=== PATIENT | male | born 1955 | race African-American/Black ===

== ENCOUNTER 2025-03-26 22:58 | Inpatient (IN) | payer OTHER, SELFPAY ==
[2025-03-26 18:27] VITALS: BP 143/89
[2025-03-26 20:50] VITALS: BMI 25.9
[2025-03-26 21:12] VITALS: BP 135/95
--- NOTE | 2025-03-26 21:47 | ED.GENMED ---
History of Present Illness
General
Chief Complaint: DVT/Possible Blood Clot
Source: patient and records
Exam Limitations: none
Time Seen by Provider: 03/26/25 20:45
Nursing documentation reviewed up to this point in time: agreed with
History of Present Illness
History of Present Illness:
Pleasant 69-year-old male referred to the ER by family therapist at [facility] who he followed up with today recently diagnosed with a rash of the left upper extremity progressed to swelling diagnosed with a DVT but no PE, given Elitanya saw family therapist
who evaluated him today referred to the ER to see vascular surgery he has no pain in his hand although he swollen all the way from the shoulder down to his hand he has a defibrillator not known to have an extra rib no trauma
Past History
Past History
ED Past Medical History: Arrthythmia and CAD
Social History
Tobacco: Non-smoker
Alcohol: None
Drug: None
Living: with family
Employment: Retired
Review of Systems
Review of Systems
All Other Systems: Not applicable
Constitutional: Denies fever or fatigue
Respiratory: Reports no symptoms
Cardiac: Reports no symptoms
Phy Exam
Physical Exam
Physical Exam:
Physical Exam
General: no apparent distress, not acutely ill
Neck: Swelling of the left neck swelling in the left shoulder all the way through the forearm and hand
Heart: Regular
Lungs: no acute respiratory distress. clear bilaterally
Abdomen: Not tender
Neuro: alert and oriented. no focal neurological deficits
Skin: no rash
Psychiatric: well kept. interactive and cooperative
Extremities: Described above left hand appears perfused
Course
Orders/Labs/Results
Orders:
Orders
03/26/25 21:39
CR Chest - 2 Views Urgent
Comment:
Reason For Exam: dvt UPPER ext ? extra rib
03/26/25 21:43
Complete Blood Count/With Diff Urgent
Comprehensive Metabolic Panel Urgent
Magnesium Urgent
03/26/25 22:10
Vascular Surgery Consult Routine
Consulting Provider: Kenney Pike
Was physician already notified: Yes
Abnormal Lab Results
03/26/25
21:43
RBC 4.24 L 10^6/uL
(4.70-6.10)
Hct 38.3 L %
(39.0-52.0)
RDW 14.6 H %
(11.5-14.5)
Absolute Neuts (auto) 7.5 H 10^3/uL
(1.4-6.5)
Absolute Lymphs (auto) 0.9 L 10^3/uL
(1.2-3.4)
Absolute Monos (auto) 1.1 H 10^3/uL
(0.1-0.6)
Neutrophils % 77.0 H %
(42.2-75.2)
Lymphocytes % 8.7 L %
(20.5-51.1)
Monocytes % 10.8 H %
(1.7-9.3)
03/26/25 21:43
Vital Signs
Initial and Last Documented VS:
Initial Vital Signs
Temp Pulse Resp BP Pulse Ox
99.2 F 91 18 143/89 97
03/26/25 18:27 03/26/25 18:27 03/26/25 18:27 03/26/25 18:27 03/26/25 18:27
Last Documented Vital Signs
Temp Pulse Resp BP Pulse Ox
99.2 F 78 20 135/95 98
03/26/25 18:27 03/26/25 21:30 03/26/25 21:30 03/26/25 21:12 03/26/25 21:49
MDM/Problems Addressed
Differential Diagnosis Includes:
Upper extremity DVT accessory rib defibrillator no PE via
MDM/Problems Addressed:
Upper extremity DVT
Chronic conditions affecting care: Arrhythmia and PVD
Acute Exacerbation and/or Progression of Chronic Illness: Arrhythmia and PVD
*Radiology
Radiology exam reviewed: radiology read reviewed
*Pulse Oximetry
SaO2: 98
Oxygen Mode of Delivery: Room air
Patient hypoxic: no
*Critical Care Note
Total Time (30-74mins, 75-104mins- exclusive of procedures): 20
Update Note
Update Note:
Update will touch base with vascular up-to-date reviewed, I do not think there is any urgently due to night extremity appears perfused will check chest x-ray to look for accessory rib
Reviewed with vascular likely due to his defibrillator recommend admission unfractioned heparin potentially lytic therapy in the morning
ED Attending Note
-
Portions of this chart may have been created with voice recognition software.� Occasional wrong word or��sound alike� substitutions may have occurred due to the inherent limitations of voice recognition software.
Discharge Plan
Departure
Patient Disposition: Admit
Date of Disposition: 03/26/25
Time of Disposition: 22:11
Admit to: Med/Surg
Presentation/result/management discussed w/ accepting MD/DO: Hospitalist
Patient with high blood pressure during this ER visit?: No
Condition: Good
Discharge Problem:
Upper leg DVT (deep venous thromboembolism), acute
Referrals:
Gino Hunt MD [Family Provider, Family Practice]
Interventions
Interventions:
*Risk Screen - Suicide Last Done: 03/26/25 18:27
*General Assessment Last Done: 03/26/25 18:27
ED- Cardiac Assessment Last Done: 03/26/25 21:08
ED- Pulmonary Assessment Last Done: 03/26/25 21:08
ED-Peripheral Vascular Assessment Last Done: 03/26/25 21:08
ED-Skin Assessment Last Done: 03/26/25 21:09
Discharge Date and Time
Print Language: LATVIAN
[2025-03-26 21:51] LABS: Hematocrit 38.3 % (39.0-52.0); Hemoglobin 13.0 g/dL (13.0-18.0); Mean Corp Hgb Conc. 33.9 g/dL (33.0-37.0); Mean Corpuscular Volume 90.3 fL (80.0-94.0); Nucleated Red Blood Cells % 0 % (-); Platelet Count 278 10^3/uL (130-400); Red Cell Dist. Width 14.6 % (11.5-14.5)
--- NOTE | 2025-03-26 21:54 | HPS.HSE ---
Family Physician
-
Family Physician: Gino Hunt
Chief Complaint
-
DVT
History of Present Illness
Patient is a 69-year-old male with past medical history of atrial fibrillation, hyperlipidemia and hypertension who presented to [facility] ED for evaluation after referral from poultry husbandman at [facility]. Patient reports approximately 2 weeks ago
he noticed a rash on palm of left hand and then noticed swelling on MondayMarch 21. Patient was seen 2x in [place] ED then followed up today with Sign Painter Helper. Patient was ultimately diagnosed with DVT but no PE, started on Eliquis today.
Sign Painter Helper called to attempt to get patient an appointment with Vascular Surgery but was unable to get through to office so referred patient to [place] ED. Patient denies any recent trauma or previous DVT.
Medical History
Past Medical History
Past Medical History: Reports Other
Additional Past Medical History:
hypertension
hyperlipidemia
atrial fibrillation
CHF?
Past Surgical History: Reports Other
Additional Past Surgical History:
pacemaker 2015
Social History
Tobacco: Non-smoker
Alcohol: Occasional
Drug: Marijuana (smokes occasionally )
Personal:
Living: Alone
Employment: Employed
Family History
Family History: Other (Mother: DM; Father: CAD; Brother: prostate cancer )
Allergies / Home Medications
Allergies reflects when Allergies were last updated in [employer].
Home Medications with original date entered in [employer]
Allergy/Medication List:
Allergies
Allergy/AdvReac Type Severity Reaction Status Date / Time
codeine Allergy Swelling Verified 03/26/25 18:31
Home Medications
albuterol sulfate 90 mcg/actuation aerosol inhaler 2 puff inhalation R Q4HPRN PRN sob/wheezing 03/26/25
amiodarone 200 mg tablet 100 mg PO MOTUWETHFR 03/26/25
amlodipine 10 mg tablet 10 mg PO DAILY 03/26/25
apixaban 5 mg (74 tabs) tablets in a dose pack (Eliquis DVT-PE Treat 30D Start) 10 mg PO BID 03/26/25
atorvastatin 40 mg tablet 40 mg PO DAILY 03/26/25
cephalexin 500 mg capsule 500 mg PO QID 03/26/25
clobetasol 0.05 % topical ointment 1 applic topical BID apply to B/L hands 03/26/25
diphenhydramine HCl 25 mg capsule (Banophen) 25 mg PO Q6HPRN PRN itching 03/26/25
doxycycline hyclate 100 mg capsule 100 mg PO BID 03/26/25
ibuprofen 200 mg capsule (Advil Liqui-Gel) 400 mg PO TIDPRN PRN mild pain 03/26/25
lisinopril 40 mg tablet 40 mg PO DAILY 03/26/25
metoprolol succinate 50 mg tablet,extended release 24 hr 50 mg PO DAILY 03/26/25
Review of Systems
-
History Source: Patient
Constitutional: Reports No Symptoms
EENT: Reports No Symptoms
Respiratory: Reports No Symptoms
Cardiac: Reports No Symptoms
Abdomen/GI: Reports No Symptoms
: Reports No Symptoms
Musculoskeletal: Reports Other (LUE swelling)
Skin: Reports Rash (rash to left palm)
Neurological: Reports No Symptoms
Endocrine: Reports No Symptoms
Hematologic/Lymphatic: Reports No Symptoms
Psych: Reports No Symptoms
Physical Exam
Vital Signs
Vital Signs
Temp Pulse Resp BP Pulse Ox
99.2 F 78 20 135/95 98
03/26/25 18:27 03/26/25 21:30 03/26/25 21:30 03/26/25 21:12 03/26/25 21:49
Physical Exam
General: Well Developed, Well Nourished and No Apparent Distress
HEENT: NormoCephalic, Moist mucous membranes and Atraumatic
Respiratory: Clear and Non Labored Respirations
Cardiac: S1/S2 and Regular Rhythm
GI: Soft, Non Tender, Non Distended and Normal Bowel Sounds
Rectal: Deferred by Provider
Musculoskeletal: No Clubbing, No Cyanosis and Edema, Left Upper Extremity (shoulder through fingers )
Skin: Rash (rash/dryness to left palm ), IV/Catheter Site and Other (LCW pacemaker/defib)
Neuro: Awake, AO x 3 and Nonfocal/grossly intact
Psych: Calm
Laboratory Results
-
03/26/25 21:43
Data Reviewed
-
Lab Data: Labs Reviewed by me
Impression/Plan
-
IMPRESSION/PLAN:
#DVT LUE
LCW pacemaker/defib
- Admit to telemetry
- Consult vascular
- start heparin gtt
- NPO at midnight
#hypertension
- continue amlodipine and lisinopril
#hyperlipidemia
- continue atorvastatin
#atrial fibrillation
s/p pacemaker/defib
- continue amiodarone and metoprolol
Code status: full code
DVT prophylaxis: heparin gtt
[2025-03-26 22:15] LABS: ALT (SGPT) 24 U/L (0-50); AST (SGOT) 27 U/L (17-59); Albumin 4.4 g/dl (3.5-5.0); Alkaline Phosphatase 41 U/L (38-126); Blood Urea Nitrogen 33 mg/dl (9-20); Calcium 9.4 mg/dl (8.4-10.2); Carbon Dioxide 21 mmol/L (22-30); Chloride 108 mmol/L (98-107); Estimated Creatinine Clearance 58 ml/min; Glucose 82 mg/dl (70-99); Magnesium 2.0 mg/dl (1.6-2.3); Potassium 4.5 mmol/L (3.5-5.1); Sodium 137 mmol/L (135-145); Total Protein 7.1 g/dl (6.3-8.2); eGFR > 60.00
--- NOTE | 2025-03-26 22:35 | W.PN.UPDATE ---
Update Note
Progress Note Update
Patient seen in conjunction with ISRA. I agree with the findings on history and physical. I concur with assessment and plan unless stated otherwise.
This is a 69-year-old male with past medical history significant for CHF s/p AICD, atrial fibrillation, hypertension, not currently on anticoagulation who presents to the emergency department after being found to have left upper extremity swelling
and new occlusive DVT.
Patient reports onset of symptoms on Monday with some rash and then development of swelling. 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 Ultimately he was in the emergency
department and had a follow-up with his news production assistant. Inverted Block Operator reported significant swelling and edema in the left upper extremity and recommended evaluation by vascular surgery. Patient did note some left-sided axillary chest pain when he
tried to move his arm around. He denies any swelling of his lower extremities. He states that he had stopped taking Eliquis a long time ago although he has a pack available to use as necessary. Is not on any blood thinners. He otherwise has been
compliant with his antihypertensives and antiarrhythmic medications. He denies any shortness of breath or chest pain.
He has no recent falls, he is ambulatory without any difficulties and denies any history of GI bleed.
In the emergency department he was afebrile, blood pressure was stable at 135/90 with a pulse of 78 and was satting 98% on room air. Hemoglobin was 13 platelet was 278. Electrolytes BUN/creatinine are pending at this time.
Assessment and plan
Occlusive thrombus in the left upper extremity, discussed with vascular surgery
- Admit to MedSurg
- N.p.o. after midnight
- Start heparin drip
- Plan for OR
-Continue with amnio and metoprolol
�Vascular consulted and notified
CODE STATUS�full code
[2025-03-26 22:49] LABS: Hematocrit 35.8 % (39.0-52.0); Hemoglobin 12.0 g/dL (13.0-18.0); Mean Corp Hgb Conc. 33.5 g/dL (33.0-37.0); Mean Corpuscular Volume 91.1 fL (80.0-94.0); Platelet Count 256 10^3/uL (130-400); Red Cell Dist. Width 14.6 % (11.5-14.5)
[2025-03-26 22:52] VITALS: BP 146/105
[2025-03-26] MEDS: HEPARIN 25000 UNITS/250 ML IV (22:54)
[2025-03-26 23:00] VITALS: BP 143/94
[2025-03-26 23:00] LABS: APTT 33.0 Sec (23.4-35.0)
[2025-03-27] VITALS (9 sets, daily range): BP systolic 127–170; BP diastolic 86–143; BMI 25.9; BMI 24.7
--- NOTE | 2025-03-27 02:35 | PTCARENOTE ---
Received pt from ED @ ~23:45. Pt AAOx3, VSS. Heparin gtt running @ 1400 units/hr through right AC. LUE restriction, +2 pitting with positive pulse. Discussed plan of care, being NPO @ midnight. Pt verbalizes understanding. Call rodriguez within reach.
[2025-03-27 05:04] LABS: Hematocrit 37.7 % (39.0-52.0); Hemoglobin 12.5 g/dL (13.0-18.0); Mean Corp Hgb Conc. 33.2 g/dL (33.0-37.0); Mean Corpuscular Volume 91.1 fL (80.0-94.0); Platelet Count 268 10^3/uL (130-400); Red Cell Dist. Width 14.6 % (11.5-14.5)
[2025-03-27 05:14] LABS: APTT 49.5 Sec (23.4-35.0)
[2025-03-27 05:24] LABS: Blood Urea Nitrogen 28 mg/dl (9-20); Calcium 8.9 mg/dl (8.4-10.2); Carbon Dioxide 24 mmol/L (22-30); Chloride 110 mmol/L (98-107); Estimated Creatinine Clearance 70 ml/min; Glucose 79 mg/dl (70-99); Potassium 4.3 mmol/L (3.5-5.1); Sodium 138 mmol/L (135-145); eGFR > 60.00
[2025-03-27 05:32] LABS: APTT 39.9 Sec (23.4-35.0)
--- NOTE | 2025-03-27 08:13 | CON.VAS ---
Addendum entered and electronically signed by Fran Diallo III, MD 03/27/25 16:06:
This patient was seen and examined in collaboration with Dr. Amaya. I agree with the history and physical exam as well as the assessment and plan. I have the following additions:
Presents with one week of left upper extremity swelling. Was seen at [place] ED twice and started on anticoagulation. History remarkable for AICD placed in 2014 at an outside hospital.
On physical examination he is well-appearing and in no acute distress
Left arm is diffusely edematous from the hand to the shoulder
He has obvious notable chest wall collaterals on the left extending over the shoulder and proximal arm
His arm is edematous but soft
Compartments are not tight
His arm is nontender
Palpable radial pulse
Left hand is pink and warm
He has a left subclavian vein DVT on my review of the outside duplex which is related to his AICD leads. Based on the physical exam findings of prominent left sided chest wall collaterals I suspect he has had a high-grade chronic left subclavian
vein stenosis (at a minimum) from the AICD leads for some time. There are no clear intervention guidelines in this situation with AICD associated upper extremity DVT. Endovascular intervention may be very challenging given the presence of the AICD
and what I suspect is a chronic subclavian vein stenosis versus occlusion. I would prefer to treat this initially with a course of anticoagulation, arm elevation and compression. If symptoms do not improve we can consider endovascular intervention.
Repeat upper extremity venous duplex here. Will follow.
Signed:
Fran Diallo III, MD
Vascular Surgery
[facility]
Original Note:
Consultation
Consultation Request
Date/Time Consultation Requested: 03/26/25, 21:55
Date/Time Consultation Performed: 03/27/25, 8:00
Requesting Provider: Ida Rader
Performing Provider: Fran Diallo
Reason for Consultation: LUE DVT
Medical History
-
Chief Complaint: LUE DVT
History of Present Illness:
Teo Fischer is a 69yo M with a pmh of HF, a fib, w AICD (2015), & HTN who p/w LUE swelling found to have LUE DVT. Vascular consulted to eval & guide mgmt.
Pt reports that sx started on 03/21 with redness & swelling in his L hand. Went to [place] ED, given benadryl & abx. Returned to [place] ED without sx improvement & swelling extending to full LUE, US demonstrated thrombus in L subclavian, axillary,
and brachial veins. Pt given heparin in ED and started on eliquis. He picked up eliquis yesterday (03/26) and took first dose yesterday morning before his heating element winder ([facility], Dr. Garza) recommended that he present to [place] ED to eval for
potential procedural intervention. Pt has AICD which was placed in 2014. States that he used to take eliquis years ago for a fib and then stopped, heating element winder said okay to hold & monitor so had not taken in awhile. Pt notes that he is unsure how
long he has had dilated veins in L shoulder/upper arm/chest wall, but just noticed them fairly recently. Endorses no other sx, AVSS. CXR in ED demonstrated no abnormalities.
Past Medical History
Past Medical History: Arrhythmias (a fib), CHF and HTN
Allergies / Home Medications
Allergy/AdvReac Type Severity Reaction Status Date / Time
codeine Allergy Swelling Verified 03/26/25 18:31
�Medication �Instructions �Recorded �Confirmed �Type
albuterol sulfate 90 mcg/actuation 2 puff inhalation R Q4HPRN PRN 03/26/25 03/26/25 History
aerosol inhaler sob/wheezing
amiodarone 200 mg tablet 100 mg PO MOTUWETHFR 03/26/25 03/26/25 History
amlodipine 10 mg tablet 10 mg PO DAILY 03/26/25 03/26/25 History
apixaban 5 mg (74 tabs) tablets in 0 mg PO DIRECTED 03/26/25 03/26/25 History
a dose pack (Eliquis DVT-PE Treat
30D Start)
atorvastatin 40 mg tablet 40 mg PO DAILY 03/26/25 03/26/25 History
cephalexin 500 mg capsule 500 mg PO QID 03/26/25 03/26/25 History
clobetasol 0.05 % topical ointment 1 applic topical BID apply to B/L 03/26/25 03/26/25 History
hands
diphenhydramine HCl 25 mg capsule 25 mg PO Q6HPRN PRN itching 03/26/25 03/26/25 History
(Banophen)
doxycycline hyclate 100 mg capsule 100 mg PO BID 03/26/25 03/26/25 History
ibuprofen 200 mg capsule (Advil 400 mg PO TIDPRN PRN mild pain 03/26/25 03/26/25 History
Liqui-Gel)
lisinopril 40 mg tablet 40 mg PO DAILY 03/26/25 03/26/25 History
metoprolol succinate 50 mg 50 mg PO DAILY 03/26/25 03/26/25 History
tablet,extended release 24 hr
Review of Systems
-
History Source: Patient
Musculoskeletal: Reports Other (swelling of LUE from shoulder to hand, pain & redness L hand, dilated veins in L upper arm/chest)
Physical Exam
Vital Signs
Temp Pulse Resp BP Pulse Ox
98.8 F 82 20 127/88 95
03/27/25 04:39 03/27/25 07:00 03/27/25 04:39 03/27/25 04:38 03/27/25 04:39
Lab Results
03/27/25 04:47
03/27/25 04:47
Physical Exam
General: Well Developed and Well Nourished
HEENT: Normocephalic, Anicteric and Atraumatic
Respiratory: Non Labored Respirations
GI: Non Distended
Musculoskeletal: Other (LUE with swelling from hand to shoulder; varicosities noted across L upper arm onto chest wall; L radial pulse palpable on exam)
Skin: Warm and Dry
Neuro: Awake, Alert and Oriented
Psych: Calm
Assessment / Plan
-
Teo Fischer is a 69yo M with a pmh of HF, a fib, w AICD (2014), & HTN who p/w LUE swelling found to have LUE DVT. Vascular consulted to eval & guide mgmt.
Assessment: Given development of dilated collateral veins on LUE & 10yr hx of AICD placement, this thrombus development likely represents a chronic process with full occlusion occurring last week. Etiology for DVT likely 2/2 AICD leads in L-sided
vessels which may trigger clot formation. Pt also had stopped his eliquis. Poor candidate for procedural intervention given that trigger (AICD leads) must remain in place, preventing full resolution, & chronicity of clot making it likely hardened
and resistant to catheter-based thrombolysis. Will obtain imaging here to visualize further; likely will experience sx resolution w continued medical mgmt.
Plan:
- LUE US
- Wrap LUE in antwon bandaging for compression to reduce edema
- Encourage elevation of LUE above level of heart on pillows while pt in bed
- Continue heparin drip inpatient
- Switch to oral anticoagulant on discharge (eliquis)
Data Reviewed
-
Ultrasound: Report Reviewed by me and Discussed with Patient
Labs: Labs Reviewed by me
Old Records: Reviewed
Critical Care Time (in minutes): 40
Total Time Spent with Patient (in minutes): 15
[2025-03-27] MEDS: LIPITOR 40 MG PO (09:06)
[2025-03-27] MEDS: NORVASC 10 MG PO (09:07)
[2025-03-27] MEDS: ZESTRIL 40 MG PO (09:07)
[2025-03-27] MEDS: TOPROL XL 50 MG PO (09:07)
[2025-03-27] MEDS: PACERONE 100 MG PO (09:29)
--- NOTE | 2025-03-27 09:36 | W.PN.HOSP.TC ---
Today's Communication/Plan
-
see A/P
Assessment / Plan
Assessment / Plan
HPI: 69-year-old male with past medical history significant for CHF s/p AICD, atrial fibrillation (not currently on anticoagulation likely due to self discontinuation), hypertension; p/w left upper extremity swelling and new occlusive DVT.
Patient presented to [facility] earlier, and was discharged from the ED. His L arm swelling appeared to be worse and he contacted his director digital strategy, who prompted him to come to ED for urgent vacular eval.
A/P:
# Occlusive thrombus in the left upper extremity
Pt was started with heparin drip, cont for now
N.p.o. after midnight for possible plan for OR
Continue MATTRESS INSPECTOR with amnio and metoprolol with hold parameter
Vascular consulted
# Essential hypertension
continue MATTRESS INSPECTOR amlodipine, lisinopril and metoprolol with hold parameter
# hyperlipidemia
continue atorvastatin
# Paroxysmal atrial fibrillation
s/p pacemaker/defib
continue MATTRESS INSPECTOR amiodarone and metoprolol
Code status: full code
DVT prophylaxis: heparin gtt
Anticipated Discharge: 24 - 48 hours
Subjective/Interval History
-
Date of Service: March 27, 2025
Objective Data
-
Labs:
Laboratory Results
03/26/25 03/26/25 03/26/25
21:43 22:43 23:07
WBC 9.8 8.9
Hgb 13.0 12.0 L
Hct 38.3 L 35.8 L
Plt Count 278 256
APTT 33.0 Cancelled
Sodium 137
Potassium 4.5
Chloride 108 H
Carbon Dioxide 21 L
BUN 33 H
Creatinine 1.2
Glucose 82
Calcium 9.4
Total Bilirubin 0.7
AST 27
ALT 24
Alkaline Phosphatase 41
03/26/25 03/27/25 03/27/25
23:11 04:47 04:47
WBC 7.8
Hgb 12.5 L
Hct 37.7 L
Plt Count 268
APTT Cancelled 49.5 H 39.9 H
Sodium 138
Potassium 4.3
Chloride 110 H
Carbon Dioxide 24
BUN 28 H
Creatinine 1.0
Glucose 79
Calcium 8.9
Total Bilirubin
AST
ALT
Alkaline Phosphatase
03/27/25
12:10
WBC
Hgb
Hct
Plt Count
APTT Pending
Sodium
Potassium
Chloride
Carbon Dioxide
BUN
Creatinine
Glucose
Calcium
Total Bilirubin
AST
ALT
Alkaline Phosphatase
Vital Signs:
Vital Signs
Temp Pulse Resp BP Pulse Ox
36.6 C 104 18 137/95 95
03/27/25 08:22 03/27/25 09:29 03/27/25 08:22 03/27/25 09:29 03/27/25 08:22
Review of Systems
-
History Source: Patient
Musculoskeletal: Reports Joint Swelling (L hand and L arm swelling )
Physical Exam
-
General: Well Developed, Well Nourished, No Apparent Distress, Comfortable and Conversant; Negative Respiratory Distress
HEENT: Normocephalic, Atraumatic, Nose Appears Normal and Ears Appear Normal; Negative Oxygen
Respiratory: Clear to Auscultation and Non Labored Respirations; Negative Accessory Resp Muscle Use
Cardiac: Regular Rhythm and S1/S2
GI: Soft, Nontender, Nondistended and Normal Bowel Sounds
Musculoskeletal: Edema, Left Upper Extrem (radial pulse is intact)
Skin: Warm and Dry
Neuro: Awake, Alert and Oriented
Psych: Calm and Intact Judgement/Insight
Data Reviewed
-
Labs: Labs Reviewed by me
--- NOTE | 2025-03-27 11:38 | CM ---
Chart reviewed. Patient is independent of ADLS, lives alone in a 1st floor apartment, 2 LILIAN, 0 DME. Plan is for the patient to return home. CM to follow
--- NOTE | 2025-03-27 11:55 | PTCARENOTE ---
received patient this am, pleasant. monitor shows NSR. VSS. IV heparin @ 1600units/hr via right arm. left arm is plus 3 edematous, taunt, weak radial. vascular surgery in seeing patient. will remain NPO until after ultrasound of left arm.
--- NOTE | 2025-03-27 12:21 | PTCARENOTE ---
to U/S via stretcher.
--- NOTE | 2025-03-27 12:59 | PTCARENOTE ---
patient returned from ultrasound.
[2025-03-27 13:41] LABS: APTT 103.8 Sec (23.4-35.0)
--- NOTE | 2025-03-27 16:26 | PTCARENOTE ---
antwon wrap applied to left upper extremity from fingers to shoulder as ordered. IV heparin @ 1600units/hr. , last PTT therapeutic, PTT due at 1845. patient will be transferred to med. surg. room 2106.
--- NOTE | 2025-03-27 18:17 | PTCARENOTE ---
report called to RN on . patients belongings packed and sent with patient. IV heparin @ 1600units/hr without difficulties.
[2025-03-27 21:31] LABS: APTT > 200 Sec (23.4-35.0)
[2025-03-28 03:05] VITALS: BP 125/85
[2025-03-28 05:50] LABS: Hematocrit 39.5 % (39.0-52.0); Hemoglobin 13.3 g/dL (13.0-18.0); Mean Corp Hgb Conc. 33.7 g/dL (33.0-37.0); Mean Corpuscular Volume 91.2 fL (80.0-94.0); Platelet Count 304 10^3/uL (130-400); Red Cell Dist. Width 14.3 % (11.5-14.5)
[2025-03-28 05:56] LABS: APTT 81.2 Sec (23.4-35.0)
[2025-03-28 06:00] VITALS: BMI 24.4
[2025-03-28 07:05] VITALS: BP 128/88
[2025-03-28 07:40] LABS: Blood Urea Nitrogen 25 mg/dl (9-20); Calcium 8.9 mg/dl (8.4-10.2); Carbon Dioxide 22 mmol/L (22-30); Chloride 109 mmol/L (98-107); Estimated Creatinine Clearance 77 ml/min; Glucose 93 mg/dl (70-99); Magnesium 2.1 mg/dl (1.6-2.3); Potassium 4.3 mmol/L (3.5-5.1); Sodium 138 mmol/L (135-145); eGFR > 60.00
--- NOTE | 2025-03-28 08:23 | W.PN.VS ---
Addendum entered and electronically signed by Fran Diallo III, MD 03/28/25 17:34:
This patient was seen and examined in collaboration with Dr. Amaya. I agree with the history and physical exam as well as the assessment and plan. I have the following additions:
Symptoms subjectively improved according to the patient
No complaints this morning
Tolerating heparin drip
Left upper extremity softly edematous but improved from yesterday
Left hand is warm palpable pulses
Again noted are prominent chest wall and left shoulder collaterals
Continue anticoagulation
Okay to convert to oral anticoagulation
Observe symptoms for another 24 hours -if stable or improved can be discharged home with follow-up with me in the office
Signed:
Fran Diallo III, MD
Vascular Surgery
[facility]
Original Note:
Today's Communication / Plan
-
Plan:
- Continue heparin inpatient
- Convert to eliquis outpatient at time of discharge
- Continue antwon compressiong wrapping of LUE
- Encourage elevation of LUE above level of heart when at rest
Assessment/Plan
-
Pt is a 69yo M with a hx of HF, a fib, w AICD (2015), & HTN found to have LUE DVT, now improving on heparin & with compression wrapping.
Assessment: Swelling of L hand slightly improved from yesterday, no changes otherwise. AVSS. LUE US returned demonstrating: 'Occlusive deep venous thrombosis within the left subclavian, axillary, and brachial veins. Superficial venous thrombus is
seen within the basilic and cephalic veins.' Corroborates findings of DVT from OSH US. No change to plan for medical mgmt.
Plan:
- Continue heparin inpatient
- Convert to eliquis outpatient at time of discharge
- Continue antwon compressiong wrapping of LUE
- Encourage elevation of LUE above level of heart when at rest
-
Total Time Spent with Patient (in minutes): 10
Subjective Data
-
Date of Service: March 28, 2025
Pt well this am, sitting up in bed. No complaints, no new or worsening pain overnight. Unsure if swelling has improved in LUE, perhaps some in hand.
Objective Data
-
Vital Signs
Temp Pulse Resp BP Pulse Ox
98.3 F 78 17 125/85 98
03/28/25 03:05 03/28/25 03:05 03/28/25 03:05 03/28/25 03:05 03/28/25 03:05
Intake and Output
03/27/25 03/28/25 03/29/25
06:59 06:59 06:59
Intake Total 960 / 960
Balance 960 / 960
Intake:
Oral fluids 960 / 960
Other:
Number of approximated MODERATE 2
amounts of urine
Lab Results
03/28/25 05:35
03/28/25 05:35
Calcium 8.9 mg/dl (8.4-10.2) 03/28/25 05:35
Magnesium 2.1 mg/dl (1.6-2.3) 03/28/25 05:35
Total Bilirubin 0.7 mg/dl (0.2-1.3) 03/26/25 21:43
AST 27 U/L (17-59) 03/26/25 21:43
ALT 24 U/L (0-50) 03/26/25 21:43
Alkaline Phosphatase 41 U/L (38-126) 03/26/25 21:43
Total Protein 7.1 g/dl (6.3-8.2) 03/26/25 21:43
Albumin 4.4 g/dl (3.5-5.0) 03/26/25 21:43
Physical Exam
-
General: well-appearing
Pulm: non-labored respirations
Vascular/MSK: LUE with swelling from shoulder to hand; extremity wrapped in antwon compression bandage (changed at bedside today); swelling in hand slightly improved from yesterday; slight firmness in L forearm, otherwise all compartments soft;
varicosities present in L chest well/shoulder
[2025-03-28] MEDS: LIPITOR 40 MG PO (09:14)
[2025-03-28] MEDS: NORVASC 10 MG PO (09:14)
[2025-03-28] MEDS: ZESTRIL 40 MG PO (09:14)
[2025-03-28] MEDS: TOPROL XL 50 MG PO (09:14)
[2025-03-28] MEDS: PACERONE 100 MG PO (09:21)
[2025-03-28 10:18] LABS: APTT 78.7 Sec (23.4-35.0)
--- NOTE | 2025-03-28 10:22 | PN.CDI ---
CDI
- -
CDI:
Physician Documentation Request
Admit Date: 03/26/25 22:58
Dear Doctor Aidan,
Please review the following and provide your response in the progress notes.
Clinical Indicators:
- Patient admit for LUE DVT
- 03/27 PN indicates history of CHF without specificity
Please provide further specificity regarding the most likely type and acuity of CHF you are evaluating, treating or monitoring.
Type Acuity
Systolic Acute
Diastolic Chronic
Combined Systolic/Diastolic Acute on Chronic
Other (please specify)
CHF ruled out
Use of terms such as suspected, likely, concern for, or probable (associated with a specific diagnosis that is being evaluated, monitored, or treated as if it exists) are acceptable and can be coded in the inpatient setting, when documented at the
time of discharge.
Thank you,
Maureen Rdz RN
CDI Specialist
Please use your independent medical judgment in providing your response.
[2025-03-28 11:20] VITALS: BP 124/80
[2025-03-28] MEDS: ELIQUIS 10 MG PO ×2 (12:14→20:38)
--- NOTE | 2025-03-28 12:44 | W.PN.HOSP.TC ---
Addendum entered and electronically signed by Анна Bermudez MD 03/28/25 13:22:
# h/o CHF chronic, unclear type
Original Note:
Today's Communication/Plan
-
see A/P
Assessment / Plan
Assessment / Plan
HPI: 69-year-old male with past medical history significant for CHF s/p AICD, atrial fibrillation (not currently on anticoagulation likely due to self discontinuation), hypertension; p/w left upper extremity swelling and new occlusive DVT.
Patient presented to [facility] earlier, and was discharged from the ED. His L arm swelling appeared to be worse and he contacted his chain saw driver, who prompted him to come to ED for urgent vacular eval.
A/P:
# Occlusive thrombus in the left upper extremity
LUE US: Extensive deep venous and superficial venous thrombosis of the left upper extremity
heparin drip -> Eliquis 10 mg BID x7 days then 5 mg BID going forward
Cont antwon compression wrapping of LUE, encourage elevation of LUE above level of heart when at rest
Vascular on board, no plan for OR
# Essential hypertension
continue MACHINE LOADER amlodipine, lisinopril and metoprolol with hold parameter
# hyperlipidemia
continue atorvastatin
# Paroxysmal atrial fibrillation
s/p pacemaker/defib
Continue MACHINE LOADER with amnio and metoprolol with hold parameter
heparin drip to Eliquis
Code status: full code
DVT prophylaxis: heparin drip to Eliquis
DW vascular surgeon Dr Diallo, [facility] to cont monitor for another day while transitioning off heparin drip to Eliquis
Anticipated Discharge: Within 24 hours
Subjective/Interval History
-
Date of Service: March 28, 2025
Objective Data
-
Labs:
Laboratory Results
03/28/25 03/28/25
05:35 09:54
WBC 8.9
Hgb 13.3
Hct 39.5
Plt Count 304
APTT 81.2 H 78.7 H
Sodium 138
Potassium 4.3
Chloride 109 H
Carbon Dioxide 22
BUN 25 H
Creatinine 0.9
Glucose 93
Calcium 8.9
Vital Signs:
Vital Signs
Temp Pulse Resp BP Pulse Ox
36.9 C 82 16 124/80 94
03/28/25 11:20 03/28/25 11:20 03/28/25 11:20 03/28/25 11:20 03/28/25 11:20
I&O
03/27/25 03/28/25 03/29/25
06:59 06:59 06:59
Intake Total 960 / 960
Balance 960 / 960
Review of Systems
-
History Source: Patient
Musculoskeletal: Reports Joint Swelling (L hand and L arm swelling have improved )
Physical Exam
-
General: Well Developed, Well Nourished, No Apparent Distress, Comfortable and Conversant; Negative Respiratory Distress
HEENT: Normocephalic, Atraumatic, Nose Appears Normal and Ears Appear Normal; Negative Oxygen
Respiratory: Clear to Auscultation and Non Labored Respirations; Negative Accessory Resp Muscle Use
Cardiac: Regular Rhythm and S1/S2
GI: Soft, Nontender, Nondistended and Normal Bowel Sounds
Musculoskeletal: Edema, Left Upper Extrem (radial pulse is intact)
Skin: Warm and Dry
Neuro: Awake, Alert and Oriented
Psych: Calm and Intact Judgement/Insight
Data Reviewed
-
Labs: Labs Reviewed by me
[2025-03-28 15:00] VITALS: BP 136/97
--- NOTE | 2025-03-28 16:56 | CM ---
Patient given 30 day free trial coupon for Eliquis
--- NOTE | 2025-03-28 17:17 | PTCARENOTE ---
RN confirmed with Vascular INSPECTOR BALANCE BRIDGE Casandra Jorgensen, who confirmed with MD Diallo, that heparin gtt is being stopped today 03/28 dayshift with transition to PO Eliquis. See MAR for orders/details. INSPECTOR BALANCE BRIDGE also relayed to RN, who relayed to patient later on that he is
looking at possible d/c home tomorrow.
[2025-03-28 19:17] VITALS: BP 142/87
[2025-03-28 23:03] VITALS: BP 130/85
[2025-03-29 03:03] VITALS: BP 146/86
[2025-03-29 05:52] VITALS: BMI 24.2
[2025-03-29 06:56] LABS: Blood Urea Nitrogen 24 mg/dl (9-20); Estimated Creatinine Clearance 77 ml/min; Glucose 96 mg/dl (70-99); Sodium 138 mmol/L (135-145); eGFR > 60.00
[2025-03-29 06:57] LABS: Calcium 9.2 mg/dl (8.4-10.2); Carbon Dioxide 23 mmol/L (22-30); Chloride 109 mmol/L (98-107); Potassium 4.3 mmol/L (3.5-5.1)
[2025-03-29 07:05] VITALS: BP 142/90
--- NOTE | 2025-03-29 07:51 | W.PN.VS ---
Today's Communication / Plan
-
as above
Assessment/Plan
-
Pt is a 69yo M with a hx of HF, a fib, w AICD (2015), & HTN found to have LUE DVT, now improving on heparin & with compression wrapping.
Assessment: Swelling of L hand slightly improved from yesterday, no changes otherwise. AVSS. LUE US returned demonstrating: 'Occlusive deep venous thrombosis within the left subclavian, axillary, and brachial veins. Superficial venous thrombus is
seen within the basilic and cephalic veins.' Corroborates findings of DVT from OSH US. No change to plan for medical mgmt.
Plan:
- Convert to eliis outpatient at time of discharge
- Continue antwon compressiong wrapping of LUE
- call with questions
Subjective Data
-
Date of Service: March 29, 2025
NAD
Still some swelling in arm but says it is improved
Objective Data
-
Vital Signs
Temp Pulse Resp BP Pulse Ox
98.7 F 71 16 142/90 99
03/29/25 07:05 03/29/25 07:05 03/29/25 07:05 03/29/25 07:05 03/29/25 07:05
Intake and Output
03/28/25 03/29/25 03/30/25
06:59 06:59 06:59
Intake Total 960 / 960 1791
Balance 960 / 960 1791
Intake:
Oral fluids 960 / 960 1791
Other:
Number of approximated SMALL 1
amounts of urine
Number of approximated MODERATE 3
amounts of urine
Lab Results
03/28/25 05:35
03/29/25 05:44
Calcium 9.2 mg/dl (8.4-10.2) 03/29/25 05:44
Magnesium 2.1 mg/dl (1.6-2.3) 03/28/25 05:35
Total Bilirubin 0.7 mg/dl (0.2-1.3) 03/26/25 21:43
AST 27 U/L (17-59) 03/26/25 21:43
ALT 24 U/L (0-50) 03/26/25 21:43
Alkaline Phosphatase 41 U/L (38-126) 03/26/25 21:43
Total Protein 7.1 g/dl (6.3-8.2) 03/26/25 21:43
Albumin 4.4 g/dl (3.5-5.0) 03/26/25 21:43
Physical Exam
-
NAD
LUE with mild swelling, mostly now in hand secondary to wrap placement
Compartments soft
[2025-03-29] MEDS: ZESTRIL 40 MG PO (08:12)
[2025-03-29] MEDS: NORVASC 10 MG PO (08:12)
[2025-03-29] MEDS: ELIQUIS 10 MG PO (08:12)
[2025-03-29] MEDS: LIPITOR 40 MG PO (08:12)
[2025-03-29] MEDS: TOPROL XL 50 MG PO (08:13)
[2025-03-29 11:05] VITALS: BP 127/86
--- NOTE | 2025-03-29 11:51 | W.PN.HOSP.TC ---
Addendum entered and electronically signed by Анна Bermudez MD 03/29/25 13:18:
total DC time 36 min
Original Note:
Today's Communication/Plan
-
DC home today
Assessment / Plan
Assessment / Plan
HPI: 69-year-old male with past medical history significant for CHF s/p AICD, atrial fibrillation (not currently on anticoagulation likely due to self discontinuation), hypertension; p/w left upper extremity swelling and new occlusive DVT.
Patient presented to [facility] earlier, and was discharged from the ED. His L arm swelling appeared to be worse and he contacted his pantograph engraver, who prompted him to come to ED for urgent vacular eval.
A/P:
# Occlusive thrombus in the left upper extremity
LUE US: Extensive deep venous and superficial venous thrombosis of the left upper extremity
heparin drip -> Eliquis 10 mg BID x7 days then 5 mg BID going forward
Cont antwon compression wrapping of LUE, encourage elevation of LUE above level of heart when at rest
Vascular on board, no plan for OR
# Essential hypertension
continue WAREHOUSE ORDER FILLER amlodipine, lisinopril and metoprolol with hold parameter
# hyperlipidemia
continue atorvastatin
# Paroxysmal atrial fibrillation
s/p pacemaker/defib
Continue WAREHOUSE ORDER FILLER with amnio and metoprolol with hold parameter
heparin drip to Eliquis
Code status: full code
DVT prophylaxis: heparin drip to Eliquis
DW vascular surgeon Dr Diallo, [facility] to cont monitor for another day while transitioning off heparin drip to Eliquis
Anticipated Discharge: Today
Subjective/Interval History
-
Date of Service: March 29, 2025
Objective Data
-
Labs:
Laboratory Results
03/29/25
05:44
Sodium 138
Potassium 4.3
Chloride 109 H
Carbon Dioxide 23
BUN 24 H
Creatinine 0.9
Glucose 96
Calcium 9.2
Vital Signs:
Vital Signs
Temp Pulse Resp BP Pulse Ox
37.1 C 71 16 142/90 99
03/29/25 07:05 03/29/25 08:13 03/29/25 07:05 03/29/25 08:13 03/29/25 07:05
I&O
03/28/25 03/29/25 03/30/25
06:59 06:59 06:59
Intake Total 960 / 960 1792 / 1792 480 / 480
Balance 960 / 960 1792 / 1792 480 / 480
Review of Systems
-
History Source: Patient
Musculoskeletal: Reports Joint Swelling (L hand and L arm swelling have improved )
Physical Exam
-
General: Well Developed, Well Nourished, No Apparent Distress, Comfortable and Conversant; Negative Respiratory Distress
HEENT: Normocephalic, Atraumatic, Nose Appears Normal and Ears Appear Normal; Negative Oxygen
Respiratory: Clear to Auscultation and Non Labored Respirations; Negative Accessory Resp Muscle Use
Cardiac: Regular Rhythm and S1/S2
GI: Soft, Nontender, Nondistended and Normal Bowel Sounds
Musculoskeletal: Edema, Left Upper Extrem (radial pulse is intact, swelling improving )
Skin: Warm and Dry
Neuro: Awake, Alert and Oriented
Psych: Calm and Intact Judgement/Insight
Data Reviewed
-
Ultrasound: Report Reviewed by me
Labs: Labs Reviewed by me
--- NOTE | 2025-03-29 13:05 | W.DCSUMMARY ---
Discharge Summary
Discharge Data
Date of Admission: 03/26/25
Date of Discharge: 03/29/25
-
Pending Results: No
Hospital Course
Principal Diagnosis:
Occlusive thrombus in the left upper extremity
Chronic Diagnoses:�
CHF s/p AICD
Paroxysmal atrial fibrillation (was not on anticoagulation due to self discontinuation)
Hypertension
Consultations:�
Vascular surgery
Procedures:�
None
Clinical course:�
This is a 69-year-old male with past medical history as stated above, who presented with left upper extremity swelling due to extensive occlusive DVT.
Problem 1:
Occlusive thrombus in the left upper extremity.
His LUE US showed extensive deep venous and superficial venous thrombosis of the left upper extremity.
He initially received heparin drip, which was later changed to Eliquis (at 10 mg BID x7 days then 5 mg BID going forward).
He has been informed to continue LEONA compression wrapping for his LUE, and was encouraged to elevate his LUE above level of heart when at rest.
Per vascular, there is no plan for the OR.
As for the rest of his medical problems, they were stable during his hospital stay.
Discharge Plan
-
Patient Disposition: Home (Routine Discharge)
Discharge Diagnosis/Procedures: L upper extremity deep vein thrombosis
Condition: Good
Diet: As tolerated
Activity: As tolerated
Driving Restrictions: Not until seen by your Dr
Wound Care: Continue LEONA compression wrapping of Left arm,
encourage elevation of Left arm above level of heart when at rest
Referrals:
Gino Hunt MD [Family Provider, Family Practice] - in less than 1 week
Jigna Cooley CRNP [Specified Professional Personl, Vascular Surgery] - 04/30/25 10:00 am
Referral Note: Vascular surgery office follow up
Additional Discharge Medication Instructions: Take Eliquis 10 mg every 12 hours for 6 days, then 5 mg every 12 hours going forward.
Prescriptions:
New
Eliquis 5 mg tablet
5 mg PO BID Qty: 60 0RF
Rx Instructions:
10 mg twice daily for 6 days, then 5 mg twice daily after that
Continued
atorvastatin 40 mg Tablet
40 mg PO DAILY
amiodarone 200 mg Tablet
100 mg PO MOTUWETHFR
metoprolol succinate 50 mg Tablet Extended Release 24 Hr
50 mg PO DAILY
amlodipine 10 mg Tablet
10 mg PO DAILY
diphenhydramine HCl [Banophen] 25 mg Capsule
25 mg PO Q6HPRN PRN (Reason: itching)
clobetasol 0.05 % ointment
1 applic TOPICAL BID
albuterol sulfate 90 mcg/actuation Hfa Aerosol Inhaler
2 puff INHALATION R Q4HPRN PRN (Reason: sob/wheezing)
lisinopril 40 mg Tablet
40 mg PO DAILY
Discontinued
doxycycline hyclate 100 mg capsule
100 mg PO BID
Patient Comments:
03/26/2025, filled on 03/24/2025 and instructed to take 1 capsule BID for 14 days.
ibuprofen [Advil Liqui-Gel] 200 mg Capsule
400 mg PO TIDPRN PRN (Reason: mild pain)
cephalexin 500 mg Capsule
500 mg PO QID
Patient Comments:
03/26/2025, filled on 03/22/2025 and instructed to take 1 capsule QID for 5 days.
Eliquis DVT-PE Treat 30D Start 5 mg (74 tabs) tablets,dose pack
0 mg PO DIRECTED
Patient Comments:
03/26/2025, pt. is currently taking 10 mg BID.
Rx Instructions:
10 mg BID x 7 days and then 5 mg BID therafter.
Discharge Orders:
Discharge Patient (As Directed); Ordered 03/29/25
Ordered By: Анна Bermudez
Care Plan Goals
Care Plan Goals:
Problem: Readiness for enhanced knowledge related to diagnosis and treatment plan
Goal: Understand your diagnosis and treatment plan needs, including medications if applicable.
Instructions: Know your diagnosis, underlying causes and treatment plan options, including medications if applicable. Consult with your health care team to learn about your diagnosis and treatment plan, including medications if applicable.
Discharge Date and Time
Print Language: KITTITIAN
== END 2025-03-29 13:22 | disposition home or self-care (01) | DRG 315 ==
LOC: 2 SOUTH 22:58
PROVIDERS: Nurse Practitioner Acute Care; Nurse Practitioner Family; ADMITTING PHYSICIAN Internal Medicine; ATTENDING PHYSICIAN Internal Medicine; EMERGENCY PHYSICIAN Emergency Medicine; FAMILY PHYSICIAN Family Medicine; OTHER PHYSICIAN Surgery Vascular Surgery
DX: T82.867A Thrombosis due to cardiac prosthetic devices, implants and grafts, initial encounter (principal); I82.612 Acute embolism and thrombosis of superficial veins of left upper extremity; I82.B12 Acute embolism and thrombosis of left subclavian vein; I82.622 Acute embolism and thrombosis of deep veins of left upper extremity; I82.A12 Acute embolism and thrombosis of left axillary vein; Q76.6 Other congenital malformations of ribs; Y71.2 Prosthetic and other implants, materials and accessory cardiovascular devices associated with adverse incidents; Y83.1 Surgical operation with implant of artificial internal device as the cause of abnormal reaction of the patient, or of later complication, without mention of misadventure at the time of the procedure; E78.5 Hyperlipidemia, unspecified; F17.200 Nicotine dependence, unspecified, uncomplicated; I11.0 Hypertensive heart disease with heart failure; I48.0 Paroxysmal atrial fibrillation; I50.9 Heart failure, unspecified; Z79.01 Long term (current) use of anticoagulants; Z79.899 Other long term (current) drug therapy; Z95.810 Presence of automatic (implantable) cardiac defibrillator
CPT/HCPCS: 71046; 80048; 80053; 83735; 85025; 85027; 85730; 93971; 99285